=== PATIENT | male | born 1935 | race Caucasian/White ===

== ENCOUNTER → 2016-12-24 12:15 | Outpatient (CLI) | payer MEDICARE, OTHER ==
[2014-01-30 10:33] VITALS: BMI 24.6
[~2016-12-24 12:15] MED LIST: ACCUPRIL20 MG PO; AGELESS MALE; CORDARONE200 MG PO; MULTI-DAY VITAM1 TAB PO; NORVASC10 MG PO; PRAVACHOL20 MG PO; ULTRAM50 MG PO
== END | disposition home or self-care (01) ==
LOC: D.RT 08:00 → D.RAD 09:00 → D.RT 12:15
DX: J84.112 Idiopathic pulmonary fibrosis (principal)

== ENCOUNTER 2017-05-08 23:15 | Inpatient (IN) | payer MEDICARE, OTHER ==
[~2017-05-08] VITALS: Ht 176 cm; Wt 70.1 kg
--- NOTE | ~2017-05-08 | EC ---
PATIENT:ALEKSEY FLORENCE DATE OF SERVICE: 05/09/17 SEX: M MEDICAL RECORD: [id number] DATE OF : [birth year] LOCATION:D.M2 D.212 AGE OF PATIENT: 81 ADMISSION DATE: 05/09/17 REFERRING PHYSICIAN: INTERPRETING PHYSICIAN: RANDALL MELCHOR M.D. ECHOCARDIOGRAM REPORT ECHO CHARGES 4 ECHO COMPLETE CLINICAL DIAGNOSIS: CVA VS. TIA ECHOCARDIOGRAPHIC MEASUREMENTS (adult normal given) AC root (d.<3.7cm) 3.1 LV Septum d (<1.2 cm> 1.4 Valve Excursion 2.0 LV Septum (systole) 2.2 Left Atria (s.<4.0cm> 4.5 LVPW d(<1.2cm) 1.4 RV (d.<2.3cm) 3.2 LVPW (sytole) 2.3 LV diastole(<5.6CM) 5.2 MV E-F(>70mm/sec) LV systole 2.6 LVOT Diameter 1.9 MV exc.(>10mm) Est.ejection fraction (50-75%) Pericardial Effusion N DOPPLER: LVIT A 88.0 E 58.0 LA RVSP 20.4 LVOT 136 AOP1/2T Asc. Ao 178 RVOT 80.0 RA PA 104 AV Gradient Peak 13.0 AV Mean 7.4 AV Area 2.0 MV Gradient Peak 5.3 MV Mean 1.0 MV Area COMMENTS: Biometrics Analyst: Minh GUTIERREZOE University Controller:Quincy Melchor TAPE# PACS DATE OF SERVICE: 05/09/2017 REFERRING PHYSICIAN: Dr. Tam Chen. INDICATION: TIA. DESCRIPTION: Left ventricle demonstrates left ventricular hypertrophy. There is mild LV dysfunction noted. Estimated ejection fraction is in the order of 40%. Mitral valve is structurally normal. There is mild regurgitation seen. Left atrium is mildly dilated. The aortic valve is trileaflet. There is no ECHOCARDIOGRAM REPORT [id number] ALEKSEY FLORENCE stenosis or regurgitation seen. Right ventricle is mildly dilated. Tricuspid valve is structurally normal. There is trivial regurgitation seen. Right atrium is normal in size. There is no pericardial effusion seen. IMPRESSION: 1. Left ventricular hypertrophy with mild left ventricular dysfunction with ejection fraction of 40%. 2. Mild mitral regurgitation. 3. No evidence of any mass or thrombus in the left ventricular apex. 4. No evidence of atrial septal defect, ventricular septal defect, or patent foramen ovale. TRANSINT:[id number] Voice Confirmation ID: [id number] DOCUMENT ID: [id number] RANDALL MELCHOR M.D. CC: [id number] DICTATION DATE: 05/09/171651 PRINCIPAL ADMINISTRATIVE CLERK: 05/10/17 0019 ADM IN [facility] [address] [id number]
[2017-05-09 00:01] LABS: HEMATOCRIT 39.7 % (42.0-54.0); LYMPHOCYTES 23.2 % (15-50); MCH 29.6 pg (26.0-34.0); MCHC 32.7 g/dL (31.0-37.0); MCV 90.4 fL (80.0-100.0); MEAN PLATELET VOLUME 8.7 fL (7.4-10.4); NEUTROPHILS 67.2 % (40-80); PLATELET COUNT 262 10x3/uL (130-400); RBC 4.39 10x6/uL (4.20-6.10); RDW 14.2 % (11.5-14.5); WBC 8.2 10x3/uL (4.8-10.8)
[2017-05-09 00:13] LABS: APPEARANCE CLEAR (CLEAR); BILIRUBIN NEGATIVE (NEGATIVE); COLOR YELLOW (YELLOW); GLUCOSE NEGATIVE (NEGATIVE); KETONE NEGATIVE (NEGATIVE); LEUKOCYTE ESTERASE NEGATIVE (NEGATIVE); NITRITE NEGATIVE (NEGATIVE); PROTEIN NEGATIVE (NEGATIVE); UROBILINOGEN NORMAL (NORMAL)
[2017-05-09 00:14] LABS: BACTERIA FEW /hpf (NONE SEEN); EPITHELIAL CELLS 0-5 /hpf (0-5); RED CELLS - URINE 0-5 /hpf (0-5); WHITE CELLS - URINE NSEEN /hpf (0-5)
[2017-05-09 00:18] LABS: ALBUMIN 3.1 g/dL (3.4-5.0); ALKALINE PHOSPHATASE 106 U/L (46-116); ALT (SGPT) 18 U/L (10-68); CALC OSMOLALITY 280 mosm/kg (275-300); CALCIUM 10.5 mg/dL (8.5-10.1); CARBON DIOXIDE 25.5 mmol/L (21.0-32.0); CHLORIDE - SERUM 105 mmol/L (98-107); CREATINE KINASE 31 UL (21-232); CREATININE - SERUM 0.8 mg/dL (0.6-1.3); GLUCOSE 109 mg/dL (74-106); POTASSIUM - SERUM 4.3 mmol/L (3.5-5.1); PRO BNP 505 pg/mL (0-450); PROTEIN - SERUM 7.6 g/dL (6.4-8.2); SODIUM 138 mmol/L (136-145); TROPONIN-I < 0.017 ng/mL (0.000-0.060); UREA NITROGEN 25 mg/dL (7-18); eGFR NON AFRICAN AMERICAN > 90 mL/min (90-120)
--- NOTE | 2017-05-09 02:29 | NUR ---
REPORT RECEIVED FROM ABEL BLACKMON.
--- NOTE | 2017-05-09 02:36 | NUR ---
ARRIVED TO FLOOR VIA STRETCHER, ACCOMPANIED HOSPITAL STAFF AND CAREGIVERS.
[2017-05-09] MEDS ORDERED: TOPROL XL25 MG PO (02:52)
[2017-05-09] MEDS ORDERED: BAYER CHEWABLE81 MG PO (02:53)
[2017-05-09] MEDS ORDERED: POTASSIUM CHLO10 ME1 PO (02:53)
[2017-05-09] MEDS ORDERED: FUROSEMIDE20 MG PO (02:53)
[2017-05-09] MEDS ORDERED: FLOMAX0.4 MG PO (02:54)
[2017-05-09] MEDS ORDERED: HYDROCODON-ACE1 EAC7 PO (02:57)
[2017-05-09 03:23] VITALS: BP 150/69; BMI 23.7
--- NOTE | 2017-05-09 03:39 | NUR ---
BED ALARM ON FOR FALL RISK OF 4. ORIENTED TO UNIT, DEMONSTRATED HOW TO USE CALL LIGHT. WILL CONTINUE TO MONITOR.
--- NOTE | 2017-05-09 06:48 | NUR ---
NO CHANGES FROM PREVIOUS ASSESSMENT, CALL LIGHT IN REACH.
[2017-05-09 08:00] VITALS: BP 143/69
--- NOTE | 2017-05-09 08:43 | NUR ---
RESTS IN BED EATING BRK. HOLLEY NEEDS AT THIS TIME. CALL LIGHT IN REACH. WILL MONITOR.
[2017-05-09 12:38] VITALS: BP 139/62
[2017-05-09 13:04] VITALS: Ht 176 cm; Wt 70.1 kg
--- NOTE | 2017-05-09 14:53 | NUR ---
Rehab Prescreening Consult recieved and the chart was reviewed. He is a new admit and has several consults pending. Rehab will continue to follow. Monae Frankel RN Clinical Liaison, Rehab
[2017-05-09 15:57] LABS: CKMB 0.3 U/L (0.0-3.6); CREATINE KINASE 29 UL (21-232)
[2017-05-09 16:00] LABS: TROPONIN-I < 0.017 ng/mL (0.000-0.060)
[2017-05-09 16:33] VITALS: BP 141/67
--- NOTE | 2017-05-09 17:51 | NUR ---
WITHOUT CHANGES OR DISTRESS NOTED AT THIS TIME. SITTER AT SIDE.
--- NOTE | 2017-05-09 20:00 | NUR ---
PT RESTING IN BED WITH NO DISTRSS. NONLABORED RESPIRATIONS ON ROOM AIR. SR PER TELEMETRY. WAYNE PATENT TO BEDSIDE DRAIN BAG. SALINE LOCK TO RIGHT A/C. SEE SHIFT ASSESSMENT. CALL LIGHT IN REACH.
[2017-05-09 20:50] LABS: CKMB 0.2 U/L (0.0-3.6); CREATINE KINASE 42 UL (21-232)
[2017-05-09 21:04] LABS: TROPONIN-I < 0.017 ng/mL (0.000-0.060)
[2017-05-09 21:30] VITALS: BP 130/70
--- NOTE | 2017-05-09 23:26 | NUR ---
HS MED GIVEN. PT VOICING NO NEEDS. CPOC.
[2017-05-10 02:16] LABS: CKMB 0.2 U/L (0.0-3.6); CREATINE KINASE 22 UL (21-232); TROPONIN-I < 0.017 ng/mL (0.000-0.060)
[2017-05-10 02:21] VITALS: BP 140/68
[2017-05-10 05:06] LABS: BASOPHILS 0.5 % (0-2); EOSINOPHILS 3.4 % (0-7); HEMATOCRIT 41.4 % (42.0-54.0); HEMOGLOBIN 13.7 g/dL (13.5-17.5); IMMATURE GRANULOCYTES 0.2 % (0-5); LYMPHOCYTES 15.5 % (15-50); MCH 30.4 pg (26.0-34.0); MCHC 33.1 g/dL (31.0-37.0); MEAN PLATELET VOLUME 9.8 fL (7.4-10.4); MONOCYTES 6.9 % (2-11); NEUTROPHILS 73.5 % (40-80); PLATELET COUNT 237 10x3/uL (130-400); WBC 9.7 10x3/uL (4.8-10.8)
[2017-05-10 05:33] LABS: ALBUMIN 2.8 g/dL (3.4-5.0); ALKALINE PHOSPHATASE 106 U/L (46-116); ALT (SGPT) 17 U/L (10-68); CALC OSMOLALITY 270 mosm/kg (275-300); CALCIUM 10.2 mg/dL (8.5-10.1); CARBON DIOXIDE 26.5 mmol/L (21.0-32.0); CHLORIDE - SERUM 103 mmol/L (98-107); CREATININE - SERUM 0.9 mg/dL (0.6-1.3); GLUCOSE 79 mg/dL (74-106); POTASSIUM - SERUM 4.1 mmol/L (3.5-5.1); PROTEIN - SERUM 7.1 g/dL (6.4-8.2); SODIUM 136 mmol/L (136-145); eGFR NON AFRICAN AMERICAN 86 mL/min (90-120)
[2017-05-10 05:39] LABS: UREA NITROGEN 12 mg/dL (7-18)
[2017-05-10 06:34] VITALS: BP 135/64
[2017-05-10 08:14] VITALS: BP 142/68
--- NOTE | 2017-05-10 08:32 | NUR ---
ASSESSMENT DONE. DENIES NEEDS.
--- NOTE | 2017-05-10 09:21 | NUR ---
SITTING UP SOB WITH CALL LIGHT IN REACH. WILL CONT. PLAN OF CARE.
--- NOTE | 2017-05-10 09:22 | NUR ---
RESTS WITH EYES CLOSED. CALL LIGHT IN REACH. WILL MONITOR NEEDS.
[2017-05-10 12:00] VITALS: BP 125/56
--- NOTE | 2017-05-10 12:10 | NUR ---
Rehab Note- Spoke with the patient and 2 of his caregivers that stay with him 24hrs a day at home. Were concerned with his diet. Uncertain if he is able to do acute 3hrs of therapy a day. Addressed diet with ANDERS Bertrand and she advanced his diet order per ST recommendations. Spoke with IVAN Brito. Will follow the patient at this time. Maria A Garcia RN Clinical Liaison, [facility] Rehab
--- NOTE | 2017-05-10 13:26 | NUR ---
APPLIED SCDS BILATERALLY FOR DVT PROPHYLACTICS. PT AND FAMILY IN ROOM STATED THEY ARE OKAY WITH THAT. REASONING AND PURPOSES EXPLAINED. NO FURTHER NEEDS. WILL CTM.
[2017-05-10 16:00] VITALS: BP 134/66
--- NOTE | 2017-05-10 16:09 | NUR ---
Patient Name: ALEKSEY FLORENCE Encounter No: [id number] : 1935 Primary Insurance: MEDICARE A & B Anticipated DC Date: 05-11-2017 Planned Disposition: Home with Home Health External Planned Provider: TO BE DETERMINED DISCHARGE PLANNING NOTE: * Is the patient Alert and Oriented? Yes 0 * How many steps to enter\exit or inside your home? 10 W/LIFT 0 * PCP DR. KEENAN 0 * Pharmacy [facility] * Preadmission Environment Home Alone 0 * ADLs Partial Dependent 0 * Partial ADLs (Assistance needed) Medication Management 0 * Equipment Other Walker Wheelchair 0 * Other Equipment ELECTRIC AND STANDARD WHEELCHAIR ANY MEDICAL EQUIPMENT PROVIDER IS ACCEPTABLE TO PT EXCEPT [facility] 0 * List name and contact numbers for known caregivers / representatives who currently or will assist patient after discharge: ELDER FLORENCE, SON, 0 * Community resources currently utilized Private Duty Care 0 * Please name any agencies selected above. PRIVATE PAY CAREGIVERS, 24 HOURS PER DAY 0 * Additional services required to return to the preadmission environment? Yes * Can the patient safely return to the preadmission environment? Yes 0 * Has this patient been hospitalized within the prior 30 days at any hospital? No 0 CM RECEIVED ORDER FOR DISCHARGE PLANNING, MET WITH PT AND CAREGIVER IN ROOM, DISCUSSED HOME HEALTH REHAB SERVICES AND MEDICAL EQUIPMENT. PT REPORTS LIVING AT HOME AND WAS INDEPENDENT IN HIS CARE PRIOR TO THIS HOSPITALIZATION, CAREGIVER REPORTS PT WAS EVEN MOWING HIS OWN YARD ON THE TRACTOR. PT REPORTS THAT HE WAS ABLE SOME DAYS TO CLIMB THE 10 STEPS TO GET INTO THE HOUSE AND NOT HAVING TO USE THE CHAIR LIFT. PT HAS PRIVATE PAY CAREGIVERS 24 HOURS A DAY NEEDED. PT HAS MOTORIZED WHEELCHAIRS, MANUAL WHEELCHAIR AND WALKER. PT HAS HAD HOME HEALTH IN THE PAST BUT HAS NONE CURRENT NOW AND NO OTHER OUTSIDE SERVICES ASSISTING IN THE HOME. CM ADVISED PT AND CAREGIVER THAT INPATIENT REHAB WOULD NOT ACCEPT PT AND THAT IF PT WANTED [facility] REHAB SERVICES, PT WOULD HAVE TO PAY OUT OF POCKET HE HAS NO 3 MIDNIGHT ADMISSION IN THE PAST 30 DAYS TO QUALIFY FOR MEDICARE TO COVER SNF REHAB. PT IS NOT WILLING FOR [facility] REHAB THAT HE WOULD HAVE TO PAY FOR. PT WOULD BE WILLING FOR HOME HEALTH AND WILL DISCUSS WHAT AGENCY TO USE WITH HIS CHILDREN AND NOTIFY CM. CHOICE LETTER WITH CM CONTACT INFORMATION LEFT WITH PT AND CAREGIVER IN ROOM. PT'S CAREGIVER ASKED FOR ANTICIPATED DISCHARGE, CM SPOKE TO DR. KEENAN VIA PHONE AND ADVISED BOTH PT AND CAREGIVER THAT THE DR ANTICIPATES DISCHARGE TOMORROW. CAREGIVER WILL NOTIFY FAMILY. IMPORTANT MESSAGE FROM MEDICARE PROVIDED AND DISCUSSED. IVAN WAITING HOME HEALTH CHOICE BY PT AND SPECIFIC HOME HEALTH ORDERS. Denny Avalos, CASE MANAGEMENT
--- NOTE | 2017-05-10 17:49 | NUR ---
WITHOUT CHANGES OR DISTRESS NOTED AT THIS TIME. DENIES NEEDS.
--- NOTE | 2017-05-10 19:45 | NUR ---
PT RESTING IN BED. ALERT WITH FAMILY SITTER AT BEDSIDE. PIV TO RFA SALINE LOCKED. WAYNE PATENT TO BEDSIDE DRAIN BAG WITH YELLOW URINE. SEE ASSESSMENT. CPOC.
--- NOTE | 2017-05-10 20:34 | NUR ---
HS MEDS GIVEN. NORCO GIVEN TO PROMOTE COMFORT. SITTER AT BEDSIDE. CPOC.
[2017-05-10 20:39] VITALS: BP 121/46
[2017-05-11 00:47] VITALS: BP 107/48
[2017-05-11 04:56] VITALS: BP 129/63
[2017-05-11 05:52] LABS: BASOPHILS 0.8 % (0-2); EOSINOPHILS 5.7 % (0-7); HEMATOCRIT 41.6 % (42.0-54.0); HEMOGLOBIN 13.7 g/dL (13.5-17.5); IMMATURE GRANULOCYTES 0.2 % (0-5); LYMPHOCYTES 21.4 % (15-50); MCH 30.4 pg (26.0-34.0); MCHC 32.9 g/dL (31.0-37.0); MCV 92.2 fL (80.0-100.0); MONOCYTES 8.5 % (2-11); NEUTROPHILS 63.4 % (40-80); PLATELET COUNT 239 10x3/uL (130-400); RBC 4.51 10x6/uL (4.20-6.10); RDW 14.3 % (11.5-14.5); WBC 8.4 10x3/uL (4.8-10.8)
[2017-05-11 06:16] LABS: ALBUMIN 2.8 g/dL (3.4-5.0); ANION GAP 5.9 mmol/L (8-16); BILIRUBIN - TOTAL 0.3 mg/dL (0.2-1.3); CALCIUM 10.4 mg/dL (8.5-10.1); CARBON DIOXIDE 27.2 mmol/L (21.0-32.0); CREATININE - SERUM 1.1 mg/dL (0.6-1.3); POTASSIUM - SERUM 4.1 mmol/L (3.5-5.1); PROTEIN - SERUM 7.3 g/dL (6.4-8.2)
[2017-05-11 08:00] VITALS: BP 143/65
--- NOTE | 2017-05-11 10:09 | NUR ---
UP TO BR WITH APPAREL PATTERNMAKER. HAD A BM. RITU WELL.
--- NOTE | 2017-05-11 11:01 | NUR ---
Patient Name: ALEKSEY FLORENCE Encounter No: [id number] : 1935 Primary Insurance: MEDICARE A & B Anticipated DC Date: 05-11-2017 Planned Disposition: Home with Home Health VS INPATIENT REHAB External Planned Provider: HOME HEALTH OR [facility] DCP follow-up note: CM SPOKE TO [place] OF INPATIENT REH[facility] WHO REPORTS THEY HAVE MET WITH PT AND CAREGIVER IN ROOM, INPATIENT REHAB WILL ACCEPT PT IF HE WANTS INPATIENT REHAB. IF NOT CM TO ARRANGE HOME HEALTH SERVICES WITH PT'S PROVIDER SELECTION. CM WAITING PT DECISION ON INPATIENT REHAB AT [facility] VS [facility]. Denny Avalos, CASE MANAGEMENT
[2017-05-11 12:00] VITALS: BP 138/66
[2017-05-11] MEDS ORDERED: ASPIRIN325 MG PO (16:07)
[2017-05-11] MEDS ORDERED: PRAVACHOL20 MG PO (16:07)
[2017-05-11] MEDS ORDERED: PROTONIX40 MG PO (16:08)
--- NOTE | 2017-05-11 16:58 | NUR ---
OT NOTE: PT COMPLETED LUE POSITION FOR INCREASED COMFORT. PT COMPLETED BED MOB WITH KEL Lo. PT COMPLETED BUE AAROM FOR INCREASED I WITH ADLS. PT COMPLETED SIMPLE GROOMING TASK WITH GAMALIEL. THANK YOU, ALBA WEI/Heladio
--- NOTE | 2017-05-11 19:02 | NUR ---
ACCEPTED TO REHAB. REPORT CALLED TO Maureen OGDEN LPN. TO REHAB VIA .
== END 2017-05-11 19:03 | DRG 65 ==
LOC: D.ER 23:15 → OBSVTIME 05-09 02:15 → D.M2 05-09 02:15
PROVIDERS: Family Medicine; ADMIT Family Medicine
DX: I63.511 Cerebral infarction due to unspecified occlusion or stenosis of right middle cerebral artery (principal); G81.94 Hemiplegia, unspecified affecting left nondominant side; I50.22 Chronic systolic (congestive) heart failure; I11.0 Hypertensive heart disease with heart failure; H35.30 Unspecified macular degeneration; E83.52 Hypercalcemia; R40.2143 Coma scale, eyes open, spontaneous, at hospital admission; R40.2363 Coma scale, best motor response, obeys commands, at hospital admission; R40.2253 Coma scale, best verbal response, oriented, at hospital admission; Z86.73 Personal history of transient ischemic attack (TIA), and cerebral infarction without residual deficits; Z87.891 Personal history of nicotine dependence

== ENCOUNTER 2017-05-11 19:15 | Inpatient (IN) | payer MEDICARE, OTHER ==
[~2017-05-11] VITALS: Ht 176 cm; Wt 81.6 kg
[~2017-05-11 19:15] MED LIST changes: +ASPIRIN325 MG PO; +BAYER CHEWABLE81 MG PO; +FLOMAX0.4 MG PO; +FUROSEMIDE20 MG PO; +HYDROCODON-ACE1 EAC7 PO; +POTASSIUM CHLO10 ME1 PO; +PROTONIX40 MG PO; +TOPROL XL25 MG PO
--- NOTE | 2017-05-11 20:00 | NUR ---
PT. IN BED WITH HOB UP FOR COMFORT WITH EYES CLOSED AND RESP. EVEN. CALL LIGHT IN HAND AND WAYNE TO BSD WITHOUT PROBLEMS.
--- NOTE | 2017-05-11 21:55 | NUR ---
PT. CALLED AND NEEDED ASSISTANCE WITH CATHETER. UPON ENTERING ROOM FOUND PT. LYING ON HIS LEFT SIDE AND HIS HOSPITAL GOWN WAS 75% OFF, HIS COVERS WERE PULLED OFF AND HE HAD HIS CATHETER TUBING GRIPPED IN HIS LEFT HAND AND WRAPPED AROUND HIS GOWN. PT. STATED HIS PRIVATES WERE HURTING. EXPLAINED TO PT. THAT BY PULLING ON HIS CATHETER TUBING HE WAS DOING THE HURTING OF HIMSELF. REMOVED TUBING FROM PT'S HAND AND GOWN. GOWN AND BED LINENS WET WITH URINE. CHANGED LINENS AND CLEANED PT. WAYNE TO BSD DRAING CLEAR YELLOW URINE. WILL CONTINUE TO MONITOR CATHETER STATUS. CALL LIGHT WITHIN REACH UPON EXITING ROOM.
[2017-05-12 00:27] VITALS: BP 139/66; BMI 26.4
--- NOTE | 2017-05-12 01:31 | NUR ---
ADMISSION PROCESS COMPLETED EARLIER AND NOW PT. IS RESTING IN BED WITH HOB UP FOR COMFORT WITH EYES CLOSED AND RESP. EVEN. WAYNE TO BSD WITHOUT PROBLEMS. CALL LIGHT WITHIN REACH.
--- NOTE | 2017-05-12 03:14 | NUR ---
PT. CALLED FOR ASSISTANCE HE CAN'T FIND THE CHANNEL HE WANTS TO WATCH ON TV. ASSISTED IN FINDING THE RIGHT CHANNEL AND REMINDED PT. HE'S GOING TO BE BUSY TODAY WITH THERAPY AND HE NEEDS HIS REST IT'S 0314 IN THE MORNING. PT. STATES HE HAD THE SAME PROBLEN "IN THE OTHER ROOM-I COULDN'T SLEEP". INFORMED PT. I WOULD LET MD KNOW. CALL LIGHT IN PT'S HAND UPON LEAVING ROOM.
[2017-05-12 06:19] LABS: BASOPHILS 0.5 % (0-2); EOSINOPHILS 3.8 % (0-7); IMMATURE GRANULOCYTES 0.3 % (0-5); LYMPHOCYTES 14.9 % (15-50); MCH 30.5 pg (26.0-34.0); MCHC 33.3 g/dL (31.0-37.0); MCV 91.5 fL (80.0-100.0); MEAN PLATELET VOLUME 10.2 fL (7.4-10.4); MONOCYTES 5.9 % (2-11); NEUTROPHILS 74.6 % (40-80); PLATELET COUNT 242 10x3/uL (130-400); RBC 4.59 10x6/uL (4.20-6.10); WBC 10.2 10x3/uL (4.8-10.8)
[2017-05-12 06:46] LABS: CALC OSMOLALITY 271 mosm/kg (275-300); CALCIUM 10.4 mg/dL (8.5-10.1); CARBON DIOXIDE 25.6 mmol/L (21.0-32.0); CHLORIDE - SERUM 103 mmol/L (98-107); GLUCOSE 103 mg/dL (74-106); SODIUM 135 mmol/L (136-145); UREA NITROGEN 19 mg/dL (7-18)
[2017-05-12 06:48] LABS: CREATININE - SERUM 0.8 mg/dL (0.6-1.3); eGFR NON AFRICAN AMERICAN > 90 mL/min (90-120)
--- NOTE | 2017-05-12 08:00 | NUR ---
SHIFT ASSMT COMPLETED.CG IN ROOM.UP IN SHOWER AFTER BREAKFAST.CG.ACTIVE IN CARE.
[2017-05-12 09:13] VITALS: BP 137/74
[2017-05-12 13:34] VITALS: Ht 176 cm; Wt 81.6 kg
--- NOTE | 2017-05-12 14:18 | NUR ---
PATIENT ADMITTED TO REHAB FROM ACUTE FLOOR. DR. KEENAN IS HIS PCP [facility] ON [address] IS HIS PHARMACY OF CHOICE. HE HAS A WALKER, WHEELCHAIR BOTH STANDARD AND ELECTRIC. HE USES [facility] FOR HIS DME NEDS. HE ALSO HAS 24 HOUR CARE AT HOME. PLANS ARE FOR PATIENT TO RETURN HOME AT TIME OF DISCHARGE. WILL CONTINUE TO FOLLOW WITH PATIENT
--- NOTE | 2017-05-12 15:38 | NUR ---
WOUND CARE: NOTED BLANCHABLE REDNESS AND OLD SCARRING ON BOTTOM. PT IS BEING REMINDED TO TURN Q 2 HOURS. HE HAS BEEN PLACED ON AN AIR OVERLAY MATTRESS. CALMOSEPTINE CREAM IS BEING APPLIED BID/PRN TO PROTECT SKIN. WOUND CARE WILL MONITOR.
--- NOTE | 2017-05-12 19:40 | NUR ---
PT. IN BED WITH HOB UP FOR COMFORT AND WATCHING TV. PT'S PRIVATE DUTY SITTER, GOPI, IS PRESENT AND WILL BE STAYING THE NIGHT WITH PT. ASSESSMENT COMPLETED. PT. NOW ON FIRST STEP MATTRESS. TONE TO BSD WITHOUT PROBLEMS. NO VOICED NEEDS AT THIS TIME AND HIS CALL LIGHT IS WITHIN REACH.
[2017-05-12 22:47] VITALS: BP 124/52
--- NOTE | 2017-05-12 23:12 | NUR ---
PT. IN BED WITH HOB UP FOR COMFORT ANY LYING ON HIS LEFT SIDE. EYES CLOSED AND RESP. EVEN. CALL LIGHT WITHIN REACH. CG IN ROOM ALSO.
--- NOTE | 2017-05-13 03:01 | NUR ---
PT. IN BED WITH HOB UP FOR COMFORT AND LYING ON HIS LEFT SIDE WITH EYES CLOSED AND RESP. EVEN. CALL LIGHT WITHIN REACH. CG REMAINS IN ROOM WITH PT.
--- NOTE | 2017-05-13 07:31 | NUR ---
RESTING QUIETLY IN BED CALL LIGHT IN REACH
--- NOTE | 2017-05-13 07:32 | NUR ---
RESTING QUIETLY IN BED CALL LIGHT IN REACH
[2017-05-13 12:47] VITALS: BP 128/67
--- NOTE | 2017-05-13 14:03 | NUR ---
LAYING IN BED VISITING WITH FRIEND. INCONT OF URINE AT TIMES EVEN THOUGH HE HAS F/C. DENIES PAIN OR FEELING LIKE HE IS HAVING BLADDER SPASMS. HAS CLOTH PRINTING BACK TENDER THAT ASST HIM.
--- NOTE | 2017-05-13 18:28 | NUR ---
BACK TO FLOOR FROM DIALYSIS. EATING SUPPER NOW
--- NOTE | 2017-05-13 18:29 | NUR ---
SITTING UP IN BED WATCHING TV. CALL LIGHT IN REACH. BLADDER TRAINING CONTINUES
[2017-05-13 19:30] VITALS: BP 120/56
--- NOTE | 2017-05-13 19:35 | NUR ---
PT IN BED WITH HOB UP FOR COMFORT. WATCHING TV. CAREGIVER IN ROOM. ALERT & ORIENTED. TONE. 1ST STEP AIR MATTRESS. NO 02. NO IV. SCROTUM SWOLLEN. BED IN LOWEST POSITION AND CALL LIGHT WITHIN REACH.
--- NOTE | 2017-05-13 23:35 | NUR ---
PT IN BED WITH HOB UP FOR COMFORT. EYES CLOSED. CHEST RISING AND FALLING. CAREGIVER IN ROOM. BED IN LOWEST POSITION AND CALL LIGHT WITHIN REACH.
--- NOTE | 2017-05-14 03:35 | NUR ---
PT IN BED WITH HOB UP FOR COMFORT. RESTING QUIETLY. RESPIRATIONS EVEN AND UNLABORED. BED IN LOWEST POSITION AND CALL LIGHT WITHIN REACH.
--- NOTE | 2017-05-14 03:45 | NUR ---
RESTING IN BED, EYES CLOSED. CAREGIVER STAYING IN ROOM WITH PATIENT.
--- NOTE | 2017-05-14 07:15 | NUR ---
RESTING IN BED QUIETLY. CALL LIGHT IN REACH
[2017-05-14 07:45] VITALS: BP 130/61
--- NOTE | 2017-05-14 13:48 | NUR ---
HAS VOIDED SINCE WAYNE CATH REMOVED. IS CONTENENT SO FAR. DENIES NEEDS
--- NOTE | 2017-05-14 17:11 | NUR ---
RESTING QUIETLYIN BED. CALL LIGHT IN REACH
[2017-05-14 19:15] VITALS: BP 117/51
--- NOTE | 2017-05-14 19:15 | NUR ---
PT IN BED WITH HOB UP FOR COMFORT. WATCHING TV. CAREGIVER IN ROOM. ALERT & ORIENTED. 1ST STEP AIR MATTRESS. NO 02. NO IV. SCROTUM SWOLLEN. URINAL. INCONTINENT AT TIMES. BED IN LOWEST POSITION AND CALL LIGHT WITHIN REACH.
--- NOTE | 2017-05-14 23:15 | NUR ---
PT IN BED WITH HOB UP FOR COMFORT. RESTING QUIETLY. CHEST RISING AND FALLING. BED IN LOWEST POSITION AND CALL LIGHT WITHIN REACH.
--- NOTE | 2017-05-15 03:50 | NUR ---
PT IS EXPERIENCING NOCTURIA, WATCHING TV, SITTING SEMI SMITH POSITION, DENIES ANY NEEDS.
[2017-05-15 07:53] VITALS: BP 152/68
--- NOTE | 2017-05-15 10:12 | NUR ---
RESTING QUIETLY IN BED. INCONT OF URINE AT TIMES. USES URINAL ALSO. LUE CONTRACTED. AIR MATTRESS ON BED. FOLLOWS COMMANDS.
--- NOTE | 2017-05-15 13:56 | NUR ---
RESTING QUIETLY IN BED CALL LIGHT IN REACH
--- NOTE | 2017-05-15 18:00 | NUR ---
SITTING UP IN BED WATCHING TV. ATE SUPPER AND NOW RELAXING.
--- NOTE | 2017-05-15 20:31 | NUR ---
PT. IN BED WITH HOB UP FOR COMFORT AND HE IS ON A FIRST STEP MATTRESS. PT. DENIES ANY NEEDS AND HIS CAREGIVER IS GOING HOME FOR THE NIGHT AND WILL BE BACK IN THE MORNING. CALL LIGHT WITHIN REACH.
[2017-05-15 20:57] VITALS: BP 146/62
--- NOTE | 2017-05-16 00:30 | NUR ---
PT IN BED WITH HOB UP FOR COMFORT. EYES CLOSED. CHEST RISING AND FALLING. BED IN LOWEST POSITION AND CALL LIGHT WITHIN REACH.
--- NOTE | 2017-05-16 04:30 | NUR ---
RESTING QUIETLY. BED IN LOWEST POSITION AND CALL LIGHT WITHIN REACH.
[2017-05-16 06:57] LABS: BASOPHILS 0.6 % (0-2); EOSINOPHILS 2.8 % (0-7); HEMATOCRIT 43.3 % (42.0-54.0); HEMOGLOBIN 14.1 g/dL (13.5-17.5); IMMATURE GRANULOCYTES 0.2 % (0-5); LYMPHOCYTES 15.4 % (15-50); MCH 29.8 pg (26.0-34.0); MCHC 32.6 g/dL (31.0-37.0); MCV 91.5 fL (80.0-100.0); MEAN PLATELET VOLUME 9.6 fL (7.4-10.4); MONOCYTES 5.8 % (2-11); NEUTROPHILS 75.2 % (40-80); PLATELET COUNT 266 10x3/uL (130-400); RBC 4.73 10x6/uL (4.20-6.10); RDW 13.8 % (11.5-14.5); WBC 10.6 10x3/uL (4.8-10.8)
[2017-05-16 07:15] LABS: CALC OSMOLALITY 271 mosm/kg (275-300); CALCIUM 10.3 mg/dL (8.5-10.1); CARBON DIOXIDE 26.7 mmol/L (21.0-32.0); CHLORIDE - SERUM 103 mmol/L (98-107); CREATININE - SERUM 0.8 mg/dL (0.6-1.3); GLUCOSE 102 mg/dL (74-106); POTASSIUM - SERUM 4.2 mmol/L (3.5-5.1); SODIUM 135 mmol/L (136-145); UREA NITROGEN 17 mg/dL (7-18); eGFR NON AFRICAN AMERICAN > 90 mL/min (90-120)
--- NOTE | 2017-05-16 08:00 | NUR ---
SHIFT ASSMT COMPLETED.UP OOB TO ASSIST IN USING THE URINAL BUT UNABLE TO VOID;ASSISTED IN STANDING BUT STILL NO RESULT.SAT DOWN IN WC;BEGAN VOIDING CLEAR URINE.SCROTUM IS LARGE;BUT APPEARS UNCHANGED FROM PREVIOUS ASSMT'S.BREAKFAST GIVEN.VSS.CL IN REACH.
--- NOTE | 2017-05-16 12:00 | NUR ---
ATTENED BY PRIVATE SITTERS.SHOWER GIVEN AND DRESSED.
--- NOTE | 2017-05-16 20:10 | NUR ---
PT. IN BED WITH HOB UP FOR COMFORT. PT. IS ON A FIRST STEP MATTRESS AND HIS CG IS AWARE OF IT'S FUNCTION. PT. DENIES ANY NEEDS AT THIS TIME. CG WILL BE STAYING THE NIGHT WITH PTEduardo AKINS. CALL LIGHT WITHIN REACH.
[2017-05-16 20:49] VITALS: BP 108/56
--- NOTE | 2017-05-16 23:01 | NUR ---
PT. IN BED WITH HOB UP FOR COMFORT WITH EYES CLOSED AND RESP. DEEP AND EVEN. PT. REMAINS ON FIRST STEP MATTRESS AND CG IN ROOM WITH PT. TO ASSIST NEEDED. CALL LIGHT REMAINS WITHIN REACH.
--- NOTE | 2017-05-17 03:00 | NUR ---
PT. IN BED ON FIRST STEP MATTRESS WITH HOB UP FOR COMFORT. EYES CLOSED AND RESP. DEEP AND EVEN. CALL LIGHT WITHIN REACH AND CG PRESENT IN ROOM.
--- NOTE | 2017-05-17 06:10 | NUR ---
PT. SITTING UP IN W/C WHILE PRIVATE CG CHANGED PT'S BED AND PT'S CLOTHING HE WAS WET. CG ASSISTED PT. BACK TO BED AND POSITIONED TO COMFORT. AM MEDS GIVEN TO PT. WITHOUT ANY PROBLEMS. PT. DENIES ANY NEEDS AT THIS TIME AND HIS CALL LIGHT IS WITHIN REACH. FIRST STEP MATTRESS UNIT TURNED BACK ON ONCE PT. WAS POSITIONED IN BED.
[2017-05-17 08:00] VITALS: BP 132/65
--- NOTE | 2017-05-17 08:00 | NUR ---
SHIFT ASSMT COMPLETED.ASSISTED IN USING URINAL;STATED UNABLE TO VOID BUT NOTED THAT SCUBS AND PADDING WET WITH URINE;ASSISTED UP OOB TO BATHROOM;CLOTHES AND BRIEF CHANGED.DRESSED AND POSITIONED IN WC FOR MEAL.SET-UP PROVIDED.
--- NOTE | 2017-05-17 12:00 | NUR ---
RESTING QUIETLY.FAMILY AND CG IN ROOM.
--- NOTE | 2017-05-17 19:48 | NUR ---
PT RESTING WITH EYES CLOSED, RESP QUIET, NO DISTRESS NOTED, LEFT UNDISTURBED AT THIS TIME, CAREGIVER AT BEDSIDE
--- NOTE | 2017-05-17 20:30 | NUR ---
PT RESTING WITH EYES CLOSED, RESP QUIET, NO DISTRESS NOTED, LEFT UNDISTURBED AT THIS TIME, PT'S CAREGIVER REPORTS PT IS SLEEPING VERY WELL AT THIS TIME AFTER HE RECEIVED A PAIN PILL EARLIER, INFORMED HER THAT I WILL DO ASSESSMENT WHEN I ADM 2100 MEDS, CAREGIVER VERBALIZES UNDERSTANDING, DINNER TRAY REMOVED
[2017-05-17 21:41] VITALS: BP 109/49
--- NOTE | 2017-05-17 21:41 | NUR ---
PT RESTING WITH EYES CLOSED, AROUSES TO SOFT VERBAL STIMULATION, PT GROGGY, ASSESSMENT PER FLOW SHEET, VS OBTAINED, CAREGIVER REPORTS THAT PT HAS A BM THREE TIMES A DAY, ADM 2100 MED PO WITH THICKENED LIQUID PER MD ORDERS, SEE EMAR, PT DENIES NEEDS OR PAIN AT THIS TIME
--- NOTE | 2017-05-17 22:30 | NUR ---
PT AWAKE, CAREGIVER REPORTS TO ME THAT PT HAD VOIDED IN URINAL, CAREGIVER SHOWED ME URINAL, 275 MLS OF DARK YELLOW URINE IN URINAL, CAREGIVER INST TO WRITE TIMES AND AMOUNT OF URINE FOR ME WHEN PT VOIDS, PT DENIES NEEDS AT THIS TIME
--- NOTE | 2017-05-18 00:16 | NUR ---
PT RESTING WITH EYES CLOSED, RESP QUIET, NO DISTRESS NOTED, LEFT UNDISTURBED AT THIS TIME, CAREGIVER AT BEDSIDE
--- NOTE | 2017-05-18 02:00 | NUR ---
PT RESTING WITH EYES CLOSED, RESP QUIET, NO DISTRESS NOTED, LEFT UNDISTURBED AT THIS TIME, CAREGIVER ASLEEP IN OTHER BED
--- NOTE | 2017-05-18 04:40 | NUR ---
PT RESTING WITH EYES CLOSED, RESP QUIET, NO DISTRESS NOTED, LEFT UNDISTURBED AT THIS TIME, CAREGIVER ASLEEP IN OTHER BED
--- NOTE | 2017-05-18 05:41 | NUR ---
CAREGIVER PREKINDERGARTEN TEACHER LIGHT, PT UP IN WC AT THIS TIME, CAREGIVER REPORTS PT WAS WET, CAREGIVER REPORTS THAT SHE WILL CLEAN PT UP, BUT WILL NEED HELP IN MOVING HIM UP IN BED, INST CAREGIVER TO USE CALL LIGHT FOR ANY ASSISTANCE, ADM 0600 MED PO PER MD ORDERS, SEE EMAR
--- NOTE | 2017-05-18 06:10 | NUR ---
PT BACK IN BED, ASSISTED CAREGIVER IN PULLING PT UP IN BED, PT DENIES NEEDS AT THIS TIME
[2017-05-18 06:38] LABS: BASOPHILS 0.5 % (0-2); EOSINOPHILS 2.8 % (0-7); HEMATOCRIT 41.9 % (42.0-54.0); HEMOGLOBIN 13.8 g/dL (13.5-17.5); IMMATURE GRANULOCYTES 0.2 % (0-5); LYMPHOCYTES 11.4 % (15-50); MCH 30.1 pg (26.0-34.0); MCHC 32.9 g/dL (31.0-37.0); MCV 91.3 fL (80.0-100.0); MEAN PLATELET VOLUME 9.8 fL (7.4-10.4); MONOCYTES 6.8 % (2-11); NEUTROPHILS 78.3 % (40-80); PLATELET COUNT 265 10x3/uL (130-400); RBC 4.59 10x6/uL (4.20-6.10); RDW 14.1 % (11.5-14.5); WBC 12.9 10x3/uL (4.8-10.8)
[2017-05-18 06:41] LABS: CARBON DIOXIDE 27.6 mmol/L (21.0-32.0); CHLORIDE - SERUM 101 mmol/L (98-107); CREATININE - SERUM 0.8 mg/dL (0.6-1.3); GLUCOSE 104 mg/dL (74-106); POTASSIUM - SERUM 4.3 mmol/L (3.5-5.1); SODIUM 135 mmol/L (136-145); eGFR NON AFRICAN AMERICAN > 90 mL/min (90-120)
[2017-05-18 06:43] LABS: CALC OSMOLALITY 275 mosm/kg (275-300); CALCIUM 10.8 mg/dL (8.5-10.1); UREA NITROGEN 28 mg/dL (7-18)
--- NOTE | 2017-05-18 07:00 | NUR ---
SHIFT REPORT TO DAY SHIFT
--- NOTE | 2017-05-18 07:05 | NUR ---
RESTING QUIETLY IN BED CALL LIGHT IN REACH
[2017-05-18 10:53] VITALS: BP 127/60
--- NOTE | 2017-05-18 11:55 | NUR ---
INCONT OF URINE AT TIMES. HEARING AID IN RT HEAR. MAX ASST WITH TRANSFERS BUT CAN WALK WITH WALKER WHEN UP. LEFT SIDE WEAKNESS NOTED. SCROTAL EDEMA STILL PRESENT.
--- NOTE | 2017-05-18 12:52 | NUR ---
CARE TEAM MEETING: SON AND DAUGHTER ATTENDED MEETING. PATIENT TENATIVE DISCHARGE DATE IS 05/30/17. PATIENT WILL HAVE 24 HOUR CAREGIVERS AT HOME WHEN DISCHARGED.WILL CONTIUNE TO FOLLOW WITH PATIENT UNTIL DISCHARGED
[2017-05-18 18:52] VITALS: BP 112/52
--- NOTE | 2017-05-18 18:52 | NUR ---
RESTING QUIETLY IN BED. CAREGIVERS AND FAMILY IN ROOM WITH PT.
--- NOTE | 2017-05-18 19:50 | NUR ---
TENNIS RACKET REPAIRER TAKE PT OUT FOR A WALK VIA WHEELCHAIR.
--- NOTE | 2017-05-18 20:20 | NUR ---
BARBERING INSTRUCTOR AND PT BACK FROM OUTSIDE.
--- NOTE | 2017-05-18 22:40 | NUR ---
PATIENT IN BED, HAVING JUST BEEN REPOSITIONED BY HIS CAREGIVER AND OUR LAUNDRY OPERATOR WASH ROOM. HAS NO COMPLAINTS AT THIS TIME.
--- NOTE | 2017-05-19 02:30 | NUR ---
FLORAL MERCHANDISER STATE PT WILL NOT GO TO BATHROOM, BUE TO WEAKNESS, OFFER BEDPAN, FLORAL MERCHANDISER PUSH NURSE AWAY, AND YELLING: "GO AWAY!"
--- NOTE | 2017-05-19 02:35 | NUR ---
SUGGEST PT REST A LITTLE WHILE THEN GO TO BATHROOM.
--- NOTE | 2017-05-19 02:55 | NUR ---
CHARGE NURSE GO TO HELP PT TO BATHROOM AND BACK TO BED.
--- NOTE | 2017-05-19 12:39 | NUR ---
Nutrition Follow Up: Pt is eating 100% x past 9 meals on a ROSEMARY mechanical soft diet with honey thick liquids. +BM 05/17/17. Labs reviewed. Meds noted including MV, Lasix. No new wt to assess. Rec continue diet per TUBING ASSEMBLER recs. RD following.
[2017-05-19 13:47] VITALS: BP 131/63
--- NOTE | 2017-05-19 18:04 | NUR ---
SITTING UP IN BED EATING SUPPER. CARE GIVERS AND FAMILY WITH PT.
--- NOTE | 2017-05-19 18:35 | NUR ---
RESTING QUIETLY IN BED. CALL LIGHT IN REACH
--- NOTE | 2017-05-19 19:30 | NUR ---
PT IN BED WITH HOB UP FOR COMFORT. EYES CLOSED. RESP. EVEN. CAREGIVER AT BEDSIDE. 1ST STEP AIR MATTRESS. INCONTINENT AT TIMES. SCROTUM EDEMA. MOD. ASSIST. NO 02. NO IV. LOCO ALARM ON. BED IN LOWEST POSITION AND CALL LIGHT WITHIN REACH.
[2017-05-19 19:43] VITALS: BP 128/62
--- NOTE | 2017-05-19 23:30 | NUR ---
PT IN BED WITH HOB UP FOR COMFORT. EYES CLOSED. CHEST RISING AND FALLING. CAREGIVER IN ROOM. BED IN LOWEST POSITION AND CALL LIGHT WITHIN REACH.
--- NOTE | 2017-05-20 03:17 | NUR ---
PT RESTING ON BACK, RESPIRATIONS REGULAR AND UNLABORED, CARE PROVIDER IN ROOM AWAKE, DENIES NEEDS. NO S/S OF ACUTE DISTRESS.
[2017-05-20 06:43] LABS: BASOPHILS 0.6 % (0-2); EOSINOPHILS 3.8 % (0-7); HEMOGLOBIN 13.4 g/dL (13.5-17.5); IMMATURE GRANULOCYTES 0.1 % (0-5); LYMPHOCYTES 13.7 % (15-50); MCH 30.5 pg (26.0-34.0); MCHC 33.5 g/dL (31.0-37.0); MCV 91.1 fL (80.0-100.0); MEAN PLATELET VOLUME 9.8 fL (7.4-10.4); MONOCYTES 6.9 % (2-11); NEUTROPHILS 74.9 % (40-80); PLATELET COUNT 240 10x3/uL (130-400); RBC 4.39 10x6/uL (4.20-6.10); RDW 13.9 % (11.5-14.5); WBC 11.2 10x3/uL (4.8-10.8)
[2017-05-20 06:50] LABS: CALC OSMOLALITY 276 mosm/kg (275-300); CALCIUM 10.5 mg/dL (8.5-10.1); CARBON DIOXIDE 26.5 mmol/L (21.0-32.0); CHLORIDE - SERUM 103 mmol/L (98-107); CREATININE - SERUM 0.9 mg/dL (0.6-1.3); GLUCOSE 96 mg/dL (74-106); POTASSIUM - SERUM 4.7 mmol/L (3.5-5.1); SODIUM 136 mmol/L (136-145); UREA NITROGEN 27 mg/dL (7-18); eGFR NON AFRICAN AMERICAN 86 mL/min (90-120)
[2017-05-20 07:54] VITALS: BP 118/54
--- NOTE | 2017-05-20 18:31 | NUR ---
RESTING QUIETLY IN BED. CATALOGUE AND SPECIAL PRODUCTS MANAGER IN ROOM WITH PT. NO S/S DISTRESS OR NEEDS.
[2017-05-20 18:38] VITALS: BP 127/65
--- NOTE | 2017-05-20 20:00 | NUR ---
PT IN BED WITH HOB UP FOR COMFORT. EYES CLOSED. RESP. EVEN. 1ST STEP AIR MATTRESS. INCONTINENT AT TIMES. SCROTUM EDEMA. MAX. ASSIST. NO O2. NO IV. LOCO ALARM ON. LT SIDE WEAK NESS. BED IN LOWEST POSITION AND CALL LIGHT WITHIN REACH.
--- NOTE | 2017-05-20 22:49 | NUR ---
PT. IN BED WITH HOB UP FOR COMFORT AND IS ON A FIRST STEP MATTESS. EYES CLOSED AND RESP. EVEN. CALL LIGHT WITHIN REACH. PRIVATE PAID CG STAYING IN ROOM WITH PT.
--- NOTE | 2017-05-21 02:48 | NUR ---
PT IN BED WITH HOB UP FOR COMFORT. EYES CLOSED. CHEST RISING AND FALLING. BED IN LOWEST POSITION AND CALL LIGHT WITHIN REACH.
--- NOTE | 2017-05-21 03:35 | NUR ---
PT IN BED WITH HOB UP FOR COMFORT. EYES CLOSED. RESPIRATIONS EVEN & UNLABORED. BED IN LOWEST POSITION AND CALL LIGHT WITHIN REACH.
[2017-05-21 08:00] VITALS: BP 128/66
--- NOTE | 2017-05-21 08:00 | NUR ---
SHIFT ASSMT COMPLETED.INCONTINENT OF URINE.CLEANED.CALMOSETINE APPLIED TO BUTTOCKS.DRESSED AND SITTING UP IN WC WITH MAX ASSIST.CL IN REACH.MEAL GIVEN.
--- NOTE | 2017-05-21 12:00 | NUR ---
UP OOB TO BATHROOM;CHANGED AND IN WC FOR LUNCH.FAMILY AT BEDSIDE.
--- NOTE | 2017-05-21 16:00 | NUR ---
SLEEPING ON SIDE.CL IN REACH.
--- NOTE | 2017-05-21 20:10 | NUR ---
PT INCONTINENCE, CLEANED AND CHANGE LINEN AND GOWN.
[2017-05-22 01:21] VITALS: BP 116/63
--- NOTE | 2017-05-22 02:30 | NUR ---
ASSISTED PATIENT'S PRIMARY NURSE TO REPOSITION PATIENT HIGHER UP IN BED.
[2017-05-22 08:00] VITALS: BP 155/71
--- NOTE | 2017-05-22 08:00 | NUR ---
SHIFT ASSMT COMPLETED.CL IN REACH.INCONT OF URINE.OOB TO WC WITH MAX ASSIST.BRIEF CHANGED AND SET UP FOR MEAL PROVIDED.MORE AWAKE AND ALERT TODAY;WILL HOLD BACLOFEN.
--- NOTE | 2017-05-22 12:00 | NUR ---
REMAINS UP IN WC.MEAL SET-UP PROVIDED.FAMILY AT BEDSIDE.
--- NOTE | 2017-05-22 16:00 | NUR ---
ASSISTED BACK TO BED;MAX X2.CL IN REACH.FAMILY AT BEDSIDE.
--- NOTE | 2017-05-22 19:50 | NUR ---
INCONTINENCE, CLEAN AND CHANGE GOWN AND LINEN.
--- NOTE | 2017-05-22 23:05 | NUR ---
INCONTINENCE, CLEAN AND CHANGE LINEN AND GOWN.
--- NOTE | 2017-05-23 00:10 | NUR ---
ASSISTED MANDA LOCKETT WITH TRANSFERRING PT. TO AND FROM BR PT. THOUGHT HE NEEDED TO HAVE BM. NO BM, JUST URINATED. POSITIONED PT. BACK IN BED FOR COMFORT WITH CALL LIGHT WITHIN REACH.
[2017-05-23 00:31] VITALS: BP 125/58
--- NOTE | 2017-05-23 03:35 | NUR ---
INCONTINENCE, CLEAN AND CHANGE GOWN AND LINEN.
--- NOTE | 2017-05-23 05:30 | NUR ---
TAKE A BATH FOR PT.
[2017-05-23 06:09] LABS: BASOPHILS 0.8 % (0-2); EOSINOPHILS 3.7 % (0-7); HEMATOCRIT 40.8 % (42.0-54.0); HEMOGLOBIN 13.4 g/dL (13.5-17.5); IMMATURE GRANULOCYTES 0.3 % (0-5); LYMPHOCYTES 17.8 % (15-50); MCH 30.4 pg (26.0-34.0); MCHC 32.8 g/dL (31.0-37.0); MCV 92.5 fL (80.0-100.0); MEAN PLATELET VOLUME 9.7 fL (7.4-10.4); MONOCYTES 7.5 % (2-11); NEUTROPHILS 69.9 % (40-80); RBC 4.41 10x6/uL (4.20-6.10); WBC 10.7 10x3/uL (4.8-10.8)
[2017-05-23 06:15] LABS: PLATELET COUNT 294 10x3/uL (130-400)
[2017-05-23 06:19] LABS: CALC OSMOLALITY 272 mosm/kg (275-300); CALCIUM 10.3 mg/dL (8.5-10.1); CARBON DIOXIDE 28.6 mmol/L (21.0-32.0); CHLORIDE - SERUM 103 mmol/L (98-107); CREATININE - SERUM 0.9 mg/dL (0.6-1.3); GLUCOSE 97 mg/dL (74-106); POTASSIUM - SERUM 4.8 mmol/L (3.5-5.1); SODIUM 135 mmol/L (136-145); UREA NITROGEN 22 mg/dL (7-18); eGFR NON AFRICAN AMERICAN 86 mL/min (90-120)
[2017-05-23 09:14] VITALS: BP 141/70
--- NOTE | 2017-05-23 14:35 | NUR ---
LAYING IN BED IN ROOM. FAMILY IN ROOM WITH PT. CALL LIGHT IN REACH
--- NOTE | 2017-05-23 19:15 | NUR ---
INCONT OF URINE AND BOWEL. MAX ASST WITH ALL ADL'S.
--- NOTE | 2017-05-23 20:00 | NUR ---
PT IN BED WITH HOB UP FOR COMFORT. WATCHING TV. 1ST STEP AIR MATTRESS. INCONTINENT. SCROTUM EDEMA. MAX. ASSIST. NO O2. NO IV. LOCO ALARM ON. LT SIDE WEAKNESS. BED IN LOWEST POSITION AND CALL LIGHT WITHIN REACH.
[2017-05-23 20:07] VITALS: BP 145/76
--- NOTE | 2017-05-24 | NUR ---
PT IN BED WITH HOB UP FOR COMFORT. EYES CLOSED. CHEST RISING AND FALLING. BED IN LOWEST POSITION AND CALL LIGHT WITHIN REACH.
--- NOTE | 2017-05-24 01:00 | NUR ---
ASSISTED PATIENT'S PRIMARY NURSE TO CHANGE PATIENT AND REPOSITION HIM UP IN BED AFTER A VERY LARGE URINARY INCONTINENCE.
--- NOTE | 2017-05-24 03:54 | NUR ---
PT IN BED WITH HOB UP FOR COMFORT. WATCHING TV. ASSISTED PT WITH URINAL. BED IN LOWEST POSITION AND CALL LIGHT WITHIN REACH.
--- NOTE | 2017-05-24 07:17 | NUR ---
RESTING QUIETLY IN BED WITH EYES CLOSED. CALL LIGHT IN REACH
[2017-05-24 08:51] VITALS: BP 152/70
--- NOTE | 2017-05-24 13:26 | NUR ---
LAYING IN BED VISITING WITH FAMILY.
--- NOTE | 2017-05-24 15:11 | NUR ---
RESTING QUIETLY IN BED. EYES CLOSED. CALL LIGHT IN REACH
[2017-05-24 19:15] VITALS: BP 127/57
--- NOTE | 2017-05-24 19:15 | NUR ---
PT IN BED WITH HOB UP FOR COMFORT. WATCHING TV. 1ST STEP AIR MATTRESS. INCONTINENT & USES URINAL. SCROTAL EDEMA. MAX. ASSIST. NO O2. NO IV. LOCO ALARM ON. LT SIDE WEAKNESS. BED IN LOWEST POSITION AND CALL LIGHT WITHIN REACH.
--- NOTE | 2017-05-24 23:15 | NUR ---
PT IN BED WITH HOB UP FOR COMFORT. RESTING QUIETLY. CHEST RISING AND FALLING. BED IN LOWEST POSITION AND CALL LIGHT WITHIN REACH.
--- NOTE | 2017-05-25 03:50 | NUR ---
IN BED AFTER PRIMARY NURSE JUST PLACED HIS URINAL. WILL CALL WHEN FINISHED.
--- NOTE | 2017-05-25 07:12 | NUR ---
INTRODUCED SELF TO PT, PT STATES NO NEEDS AT THIS TIME, WILL CONTINUE TO MONITOR, CALL LIGHT WITHIN REACH.
[2017-05-25 08:09] VITALS: BP 131/60
--- NOTE | 2017-05-25 09:30 | NUR ---
MORNING MEDICATION GIVEN, PT TOLERATED WELL, PT GOING TO THERAPY, WILL CONTINUE TO MONITOR, CALL LIGHT WITHIN REACH.
--- NOTE | 2017-05-25 13:34 | NUR ---
PT VISITING WITH FAMILY AND COUNSELING SPECIALIST, PT STATES NO NEW NEEDS AT THIS TIME, WILL CONTINUE TO MONITOR, CALL LIGHT WITHIN REACH.
--- NOTE | 2017-05-25 15:36 | NUR ---
JUST FINISHED WITH THERAPY.CL IN REACH.CG AT BEDSIDE.
--- NOTE | 2017-05-25 16:56 | NUR ---
PT UP IN CHAIR, VISITING WITH FAMILY, OCCUPATIONAL HEALTH COORDINATOR AT BEDSIDE, PT STATES NO NEW NEEDS AT THIS TIME, WILL CONTINUE TO MONITOR, CALL LIGHT WITHIN REACH.
--- NOTE | 2017-05-25 17:55 | NUR ---
PT SITTING UP IN BED EATING DINNER, CAREGIVER AT BEDSIDE, PT STATES NO NEEDS AT THIS TIME, WILL CONTINUE TO MONITOR, CALL LIGHT WITHIN REACH.
--- NOTE | 2017-05-25 19:20 | NUR ---
INCONTINENCE, CLEAN AND CHANGE GOWN AND LINEN.
[2017-05-25 23:24] VITALS: BP 127/63
--- NOTE | 2017-05-25 23:45 | NUR ---
INCONTINENCE, CLEAN, AND CHANGE GOWN AND LINEN.
--- NOTE | 2017-05-26 02:00 | NUR ---
PT RESTING, EYES CLOSED. RR ARE EVEN AND UNLABORED. BED LOW. CL IN REACH.
--- NOTE | 2017-05-26 07:30 | NUR ---
BREAKFAST TRAY SET UP IN FRONT OF PATIENT. CARTONS OPENED AND FOOD CUT FOR PATIENT. PATIENT IS ON A FIRST STEP MATTRESS. CALL LIGHT WITHIN REACH. VOICES NO NEEDS AT THIS TIME. BED ALARM ON.
[2017-05-26 08:38] VITALS: BP 140/64
--- NOTE | 2017-05-26 09:44 | NUR ---
PATIENT IN REHAB ROOM. WORKING WITH PHYSICAL THERAPIST. DENIES ANY PAIN/DISC AT THIS TIME.
--- NOTE | 2017-05-26 11:39 | NUR ---
PT RESTING IN BED, RESPIRATIONS EVEN, CAREGIVER AT BEDSIDE, WILL CONTINUE TO MONITOR, CALL LIGHT WITHIN REACH.
--- NOTE | 2017-05-26 13:11 | NUR ---
PT RESTING IN BED, VISITING WITH FAMILY AND CAREGIVEN, PT STATES NO NEW NEEDS AT THIS TIME, WILL CONTINUE TO MONITOR, CALL LIGHT WITHIN REACH.
--- NOTE | 2017-05-26 13:43 | NUR ---
IN BED SITTING UP;FAMILY AT BEDSIDE.
--- NOTE | 2017-05-26 18:30 | NUR ---
PT SITTING UP IN BED EATING DINNER, VISITING WITH CAREGIVER, PT STATES NO NEEDS AT THIS TIME, WILL CONTINUE TO MONITOR, CALL LIGHT WITHIN REACH.
[2017-05-26 20:00] VITALS: BP 121/58
--- NOTE | 2017-05-26 22:10 | NUR ---
ASSISTED ELEVATOR INSTALLER APPRENTICE TAKE A BATH FOR PT.
--- NOTE | 2017-05-27 01:48 | NUR ---
RESTING QUIETLY IN BED, EYE CLOSE, BED LOW, CALL LIGHT WITHIN REACH.
--- NOTE | 2017-05-27 05:30 | NUR ---
PT CONVERSIVE, ASSISTED WITH MAX ASSIST WITH POSITIONING, DENIES PAIN.
--- NOTE | 2017-05-27 08:00 | NUR ---
SHIFT ASSMT COMPLETED.DENIES NEEDS.CL IN REACH.MEAL SET-UP PROVIDED.POS UP IN BED.
[2017-05-27 08:54] VITALS: BP 142/60
--- NOTE | 2017-05-27 10:15 | NUR ---
URINAL GIVEN,VOIDED SMALL AMT.LEAKED SOME ON BRIEF,CHANGED,DRESSED AND UP IN WC FOR THERAPY.ALRM ON CHAIR.CG AT BEDSIDE.
--- NOTE | 2017-05-27 12:00 | NUR ---
UP IN WC.FAMILY AT BEDSIDE.
--- NOTE | 2017-05-27 16:00 | NUR ---
IN BED,RESTING WELL,DENIES NEEDS.SITTER AT BEDSIDE.
[2017-05-27 19:06] VITALS: BP 122/68
--- NOTE | 2017-05-27 19:50 | NUR ---
PT RESTING IN BED WITH HOB ELEVATED, INCONTINENT OF URINE, CONTINENCE CARE PROVIDED. RESPIRATIONS REGULAR AND UNLABORED.
--- NOTE | 2017-05-28 01:00 | NUR ---
PT REQUESTED URINAL TO URINATE. PT HAS DIFFICULTY WITH INITATING URINARY FLOW. ADDON FOR ASSESSMENT, PT HAS SCROTAL EDEMA.
--- NOTE | 2017-05-28 04:05 | NUR ---
PT VOIDED 100+ CC IN URINAL, PT HAS DIFFICULTY STARTING STREAM. PT ALERT & ORIENTED IS ABLE TO VERBALIZE NEEDS.
--- NOTE | 2017-05-28 04:26 | NUR ---
PT REQUESTED ENSURE, PT HAS HAD TWO ENSURES IN THE LAST HOUR. PT IS ALERT & ORIENTED, SPEECH IS SLOW TO ARTICULATE CLEARLY.
--- NOTE | 2017-05-28 07:47 | NUR ---
RESTING QUIETLY IN BED. EYES CLOSED. CALL LIGHT IN REACH
--- NOTE | 2017-05-28 12:09 | NUR ---
SITTING UP IN BED EATING LUNCH. FAMILY IS VISITING. DENIES NEEDS.
--- NOTE | 2017-05-28 12:11 | RHP ---
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 He presented to the ED via EMS with increased left-sided weakness and left facial droop. He is a 81-year-old gentleman with history of old CVA with left-sided weakness. Neurology consult MRI confirmed a new lacunar infarct in the right middle cerebral artery distribution. He has 24-hour caregivers at home, but reports that he is independent with his care, mows his own lawn on a tractor and is able to ambulate up to 10 stairs at home. He currently will require minimal to total assist for ADLs, max assist and total assist for mobility. The patient and his caregivers plan on him return home hopefully back to his prior level of functioning or better. COMORBIDITIES: Include oropharyngeal dysphagia, dysarthric speech, left lower extremity edema and numbness, tobacco use, acute weakness, CHF, hypercalcemia, chronic CVA, hypertension and chronic back pain. PAST MEDICAL HISTORY: Significant for CVA, left-sided weakness, hypertension, CHF, chronic back pain, upper extremity weakness, macular degeneration. He has got history of thyroid nodule, hypertension, abdominal aneurysm, chronic cough and tobacco use. PAST SURGICAL HISTORY: Includes a nephrectomy in 1971 and removal of a lesion from his right foot. ALLERGIES: No known drug allergies. CURRENT MEDICATIONS: Include Pravachol 20 mg daily, potassium 10 mEq daily, Protonix 40 mg daily. He is on a multivitamin daily, metoprolol 25 mg daily, furosemide 20 mg daily, aspirin 325 mg daily, Norvasc 10 mg daily, Flomax 0.4 mg q.h.s., [place] 5/325 as needed for pain and MiraLax 17 grams in 8 ounces of water daily as needed. HABITS: Does have a history of tobacco use. FAMILY HISTORY: Noncontributory. SOCIAL HISTORY: The patient hopes to return back home with his 24-hour caregivers. REVIEW OF SYSTEMS: GENERAL: He denies weakness or fatigue. HEENT: He denies cold, cough, or congestion. HISTORY AND PHYSICAL [id number] ALEKSEY FLORENCE CARDIOVASCULAR: Denies chest pain. PHYSICAL EXAMINATION: VITAL SIGNS: Stable, afebrile. GENERAL: A well-developed gentleman in no acute distress, alert upon exam. HEENT: Normocephalic, atraumatic. Mucosa moist. NECK: Supple, with no lymphadenopathy. LUNGS: Clear at this time. HEART: Regular rate and rhythm. ABDOMEN: Benign. EXTREMITIES: No clubbing, cyanosis or edema. NEUROLOGIC: He does have noted weakness on his left side. LABORATORY DATA: His white count is 10.2, H&H of 14 and 42, and platelet count is 242. His sodium is 135, potassium 4.0, BUN and creatinine of 19 and 0.8 and blood sugar is noted to be 103. ASSESSMENT: This 81-year-old gentleman admitted to the rehab with a working diagnosis of acute right middle cerebral artery infarct involving the lacunar region and thalamus and left hemiparesthesia. The patient has potential to make improvement. We instituted the following multidisciplinary therapies including to, but not limited to physical, occupational, respiratory, speech, nutritional services, prosthetics and orthotics. Given his complex condition and risk for more complications, rehabilitation services cannot be provided at a low level of care such as a care home facility. PLAN: 1. Admit to [facility] rehab for intensive inpatient therapy to include the following disciplines: A. Physical therapy to improve gait, all transfer skills and bed mobility to a modified independent level. B. Occupational therapy to improve activities of daily living to a modified independent level. C. Case management to assist with discharge planning and placement options. D. Nutrition to assist with nutritional needs. E. Rehabilitation nursing to assist in monitoring the patient's underlying medical conditions and to assist with any type of bowel or bladder management. 2. The patient's current medication and medical care will be continued. 3. The patient will be placed on standard fall precautions. 4. The patient's estimated length of stay is approximately 7-10 days. 5. We will go ahead and follow him closely, hopefully get his strength back on that side and get him back home with his caregivers. We will discuss this patient during care team staff meeting this week. TRANSINT:[id number] Voice Confirmation ID: [id number] DOCUMENT ID: [id number] CHRISTINE notes whether there has been none or any medical/functional change since admission: - CHRISTINE attests patient continues to be appropriate for IRF: - HISTORY AND PHYSICAL [id number] ALEKSEY FLORENCE SCOTT MD at 1211 CC: [id number] DICTATION DATE: 05/12/17 0849 EMPLOYEE RELATION MANAGER: 05/12/[address] [facility] [address] [id number]
--- NOTE | 2017-05-28 14:26 | NUR ---
RESTING QUIETLY IN ROOM. SITTER IN ROOM WITH PT.
[2017-05-28 15:54] VITALS: BP 119/61
--- NOTE | 2017-05-28 17:18 | NUR ---
LAYING IN BED EATING SUPPER.DENIES NEEDS. CALL LIGHT IN REACH
--- NOTE | 2017-05-28 20:10 | NUR ---
ENCOURAGED PT TO EAT, PT STATED HE DIDN'T KNOW TRAY WAS IN ROOM, PT WANTED LEMON PIE, AND A CUPCAKE THAT WAS ON HIS TABLE WHICH WAS BROUGHT FROM OUTSIDE. PROVIDED INCONTINENCE CARE.
[2017-05-28 20:11] VITALS: BP 143/66
--- NOTE | 2017-05-28 20:25 | NUR ---
FOUND PT ATTEMPTING TO SIT AT SIDE OF BED, PT STATED HE WAS LOOKING FOR HIS PHONE.
--- NOTE | 2017-05-28 20:35 | NUR ---
PT PRIVATE SITJUS PRESENT, LAURYN STATED HE CALLED AND REQUESTED THAT SHE COME UP.
--- NOTE | 2017-05-28 23:00 | NUR ---
SITTER LYING IN BED WITH BED.
--- NOTE | 2017-05-29 03:20 | NUR ---
PT VOIDED IN URINAL, PT NOT ABLE TO MANAGE URINAL.
--- NOTE | 2017-05-29 08:21 | NUR ---
SITTING UP IN BED EATING BREAKFAST. CALL LIGHT IN REACH.
--- NOTE | 2017-05-29 12:13 | NUR ---
LAYING IN BED EATING LUNCH. SON AT BEDSIDE. USING URINAL OFTEN. STILL INCONT OFTEN.
[2017-05-29 12:47] VITALS: BP 149/68
--- NOTE | 2017-05-29 18:15 | NUR ---
SITTING UP IN BED WATCHING TV. HAS BEEN INCONT TODAY EXCEPT THE TIMES WHEN HIS FAMILY WAS HERE AND HE VOIDED APPX 50 CC EACH TIME IN THE URINAL.
[2017-05-29 19:15] VITALS: BP 120/58
--- NOTE | 2017-05-29 19:30 | NUR ---
PT IN BED WITH HOB UP FOR COMFORT. WATCHING TV. 1ST STEP AIR MATTRESS. INCONTINENT & USES URINAL. SCROTAL EDEMA. MAX. ASSIST. NO O2. NO IV. LT SIDE WEAKNESS. BED IN LOWEST POSITION AND CALL LIGHT WITHIN REACH.
--- NOTE | 2017-05-29 21:15 | NUR ---
ASSISTED WIHT INCONTINENCE CARE, BM SMEARS, BUTTOCK REDDENED. PT USES CALL LIGHT TO COMMUNICATE NEEDS. SITTER PRESENT IN THE HOSPITAL.
--- NOTE | 2017-05-29 23:30 | NUR ---
PT IN BED WITH HOB UP FOR COMFORT. EYES CLOSED. CHEST RISING AND FALLING. BED IN LOWEST POSITION AND CALL LIGHT WITHIN REACH.
--- NOTE | 2017-05-30 03:30 | NUR ---
PT LYING IN BED. EYES CLOSED. RESPIRATIONS EVEN AND UNLABORED. BED IN LOWEST POSITION AND CALL LIGHT WITHIN REACH.
[2017-05-30 08:38] VITALS: BP 137/74
[2017-05-30] MEDS ORDERED: HYDROCODON-ACE1 EAC7 PO (09:46)
--- NOTE | 2017-05-30 12:10 | NUR ---
SITTING IN BED EATING LUNCH.
--- NOTE | 2017-05-30 15:51 | NUR ---
patient will discharge to [facility] on 05/31/17 per family request. at this time patient has no care givers to assist him at home. patient will transport there via facility van. Son is at bedside.Appointment with Dr. Chen will be made at time of discharge from facility along with home health and DME needs. Will continue to follow with patient.
--- NOTE | 2017-05-30 16:33 | NUR ---
LAYING IN BED WITH EYES CLOSED. INCONT OF URINE.
--- NOTE | 2017-05-30 17:51 | NUR ---
SITTING UP IN BED EATING SUPPER. SON STILL SITTING WITH PT.
[2017-05-30 19:00] VITALS: BP 128/59
--- NOTE | 2017-05-30 19:15 | NUR ---
PT IN BED WITH HOB UP FOR COMFORT. EYES CLOSED. CHEST RISING AND FALLING. 1ST STEP AIR MATTRESS. INCONTINENT & USES URINAL. SCROTAL EDEMA. NO O2. NO IV. LT SIDE WEAKNESS. MAX. ASSIST. BED IN LOWEST POSITION AND CALL LIGHT WITHIN REACH.
--- NOTE | 2017-05-30 23:15 | NUR ---
PT IN BED WITH HOB UP FOR COMFORT. EYES CLOSED. CHEST RISING AND FALLING. BED IN LOWEST POSITION AND CALL LIGHT WITHIN REACH.
--- NOTE | 2017-05-31 01:45 | NUR ---
IN BED, EYES CLOSED. RESTING QUIETLY.
--- NOTE | 2017-05-31 04:45 | NUR ---
PT IN BED WITH HOB UP FOR COMFORT. RESTING QUIETLY. BED IN LOWEST POSITION AND CALL LIGHT WITHIN REACH.
--- NOTE | 2017-05-31 08:00 | NUR ---
SHIFT ASSMT COMPLETED.PLAN TO DC TO [facility] TODAY.BREAKFAST GIVEN.CL IN REACH.
[2017-05-31 09:26] VITALS: BP 139/66
--- NOTE | 2017-05-31 09:50 | NUR ---
PATIENT CHOICE FORM FOR SNF AND [facility] FORMS SIGNED, EXPLAINED AND FILED IN CHART. SON AT BEDSIDE. WILL DISCHARGE TODAY
--- NOTE | 2017-05-31 12:15 | NUR ---
REVIEWED MEDS WITH PT AND SON;F/U APPT AFTER DC FROM [place];STATES UNDERSTANDING.DISCHARGED IN STABLE CONDITION TO [facility].
== END 2017-05-31 12:15 | DRG 57 ==
LOC: D.REHAB 19:15
PROVIDERS: ADMIT Emergency Medicine
DX: I69.354 Hemiplegia and hemiparesis following cerebral infarction affecting left non-dominant side (principal); R13.12 Dysphagia, oropharyngeal phase; I69.322 Dysarthria following cerebral infarction; I69.992 Facial weakness following unspecified cerebrovascular disease; R60.0 Localized edema; R53.1 Weakness; I11.0 Hypertensive heart disease with heart failure; I50.9 Heart failure, unspecified; G89.29 Other chronic pain; Z72.0 Tobacco use

== ENCOUNTER → 2017-07-22 13:59 | Outpatient (CLI) | payer MEDICARE, OTHER ==
[2017-05-12 13:34] VITALS: BMI 26.3
[2017-07-22 15:25] LABS: APPEARANCE HAZY (CLEAR); BILIRUBIN NEGATIVE (NEGATIVE); COLOR YELLOW (YELLOW); GLUCOSE NEGATIVE (NEGATIVE); KETONE NEGATIVE (NEGATIVE); LEUKOCYTE ESTERASE 1+ (NEGATIVE); NITRITE NEGATIVE (NEGATIVE); PROTEIN NEGATIVE (NEGATIVE); UROBILINOGEN NORMAL (NORMAL)
[2017-07-22 15:27] LABS: BACTERIA MANY /hpf (NONE SEEN); RED CELLS - URINE OCC /hpf (0-5)
== END | disposition home or self-care (01) ==
LOC: D.LABREF 13:59
PROVIDERS: Family Medicine
DX: G81.90 Hemiplegia, unspecified affecting unspecified side (principal)

== ENCOUNTER → 2017-07-26 19:02 | Outpatient (CLI) | payer MEDICARE, OTHER ==
[2017-05-12 13:34] VITALS: BMI 26.3
== END | disposition home or self-care (01) ==
LOC: D.LABREF 19:02
DX: I69.322 Dysarthria following cerebral infarction (principal)

== ENCOUNTER 2017-08-08 12:01 | Emergency (ER) | payer MEDICARE, OTHER | END 2017-08-08 16:40 | disposition home or self-care (01) | LOC: D.ER 12:01 | DX: R33.9 Retention of urine, unspecified (principal); I10 Essential (primary) hypertension ==

== ENCOUNTER → 2017-08-12 12:46 | Outpatient (CLI) | payer MEDICARE, OTHER ==
[2017-05-12 13:34] VITALS: BMI 26.3
== END | disposition home or self-care (01) ==
LOC: D.LABREF 12:46
DX: I50.9 Heart failure, unspecified (principal); R32 Unspecified urinary incontinence

== ENCOUNTER → 2017-08-23 16:31 | Outpatient (CLI) | payer MEDICARE, OTHER ==
[2017-05-12 13:34] VITALS: BMI 26.3
== END | disposition home or self-care (01) ==
LOC: D.LABREF 16:31
DX: N39.0 Urinary tract infection, site not specified (principal)